=== PATIENT | female | born 1995 | race Caucasian/White ===

== ENCOUNTER 2024-01-30 22:14 | Emergency (ER) | payer OTHER, SELFPAY ==
[2024-01-30 22:18] VITALS: BP 135/74; PULSE 112; RESP 18; TEMP 36.6; O2SAT 96; BMI 39.9
--- NOTE | 2024-01-30 22:37 | ED_ITS ---
HPI - Abdominal Pain General Chief Complaint: Abdominal Pain Stated Complaint: Abdominal Pain, Nausea/Vomiting Time Seen by Provider: 01/30/24 22:27 Source: patient Mode of arrival: walk-in Limitations: no limitations History of Present Illness HPI narrative: past history of gastric bypass. Past liver laceration 2018 that healed spontaneously. Now presents complaining of recurrent RUQ pain since yesterday associated with nausea. No fever or dyspnea MD elicited complaint: Reports abdominal pain Related Data Allergies Allergy/AdvReac Type Severity Reaction Status Date / Time acetaminophen [From Vicodin] Allergy Intermediate Hives Verified 01/30/24 22:25 hydrocodone [From Vicodin] Allergy Intermediate Hives Verified 01/30/24 22:25 oxycodone Allergy Intermediate Hives Verified 01/30/24 22:25 Review of Systems ROS Status of ROS 10 or more systems reviewed and unremark able except as noted in history and below Exam Constitutional Vital Signs, click to edit/add: Last Vital Signs Temp 98 F 01/30/24 22:18 Pulse 63 01/31/24 01:29 Resp 14 01/31/24 01:29 BP 110/72 01/31/24 01:29 Pulse Ox 96 01/31/24 01:29 O2 Del Method Room Air 01/31/24 01:29 Common normals: no apparent distress, average body habitus, oriented x3, no limitations, healthy appearing, alert and well nourished [facility] Common normals: normocephalic and head/scalp atraumatic Eye Common normals: PERRL, EOMs intact bilaterally and conjunctivae normal Respiratory Common normals: normal respiratory effort, no retractions, no use of accessory muscles and clear to auscultation bilaterally Cardio Common normals: regular rate, regular rhythm, S1 normal heart sound and S2 normal heart sound GI Other: RUQ tenderness Extremity Common normals: normal to inspection and full ROM Neuro Common normals: oriented x3, CN's II-XII intact bilaterally, moves all extremities and no focal motor deficits Psych Appearance: grossly normal Course Vital Signs Vital signs: Vital Signs Temperature 98 F 01/30/24 22:18 Pulse Rate 112 H 01/30/24 22:18 Respiratory Rate 18 01/30/24 22:18 Blood Pressure 135/74 01/30/24 22:18 Pulse Oximetry 96 01/30/24 22:18 Oxygen Delivery Method Room Air 01/30/24 22:18 Temperature 98 F 01/30/24 22:18 Pulse Rate 63 01/31/24 01:29 Respiratory Rate 14 01/31/24 01:29 Blood Pressure 110/72 01/31/24 01:29 Pulse Oximetry 96 01/31/24 01:29 Oxygen Delivery Method Room Air 01/31/24 01:29 MDM - Abdominal Pain MDM Narrative Medical decision making narrative: patient presents with RUQ pain and nausea. LFTs normal. CT without acute findings. Patient is feeling better after zofran and hydration. Discharged home in improved condition and advised to schedule out patient GB US and follow up with her doctor Return to ER if symptoms recur Lab Data Labs: Lab Results 01/30/24 Range/Units 22:35 WBC 7.3 (4.0-11.0) 10^3/uL RBC 4.44 (4.20-5.40) 10^6/uL Hgb 13.2 (12.0-16.0) g/dL Hct 41.7 (36.0-48.0) % MCV 93.9 (81.0-99.0) fL MCH 29.7 (26.7-34.0) pg MCHC 31.7 (29.9-35.2) g/dL RDW 11.6 (11.0-15.0) % Plt Count 323 (150-450) 10^3/uL MPV 9.9 (9.5-13.5) fL Neut % (Auto) 42.2 L (43.0-75.0) % Lymph % (Auto) 46.9 (20.5-60.0) % [place] % (Auto) 8.3 (1.7-12.0) % Eos % (Auto) 2.1 (0.9-7.0) % Baso % (Auto) 0.4 (0.2-2.0) % Neut # (Auto) 3.1 (1.4-6.5) 10^3/uL Lymph # (Auto) 3.4 (1.2-3.8) 10^3/uL [place] # (Auto) 0.6 (0.3-0.8) 10^3/uL Eos # (Auto) 0.2 (0.0-0.7) 10^3/uL Baso # (Auto) 0.0 (0.0-0.1) 10^3/uL Abs Immat Gran (auto) 0.01 (0.00-0.03) 10^3/uL Imm/Tot Granulo (auto) 0.1 (0.0-0.5) % Sodium 139 (136-145) mmol/L Potassium 3.3 L (3.5-5.1) mmol/L Chloride 107 (98-107) mmol/L Carbon Dioxide 19.8 L (21.0-32.0) mmol/L Anion Gap 15.5 BUN 16.0 (7.0-18.0) mg/dL Creatinine 1.13 H (0.55-1.02) mg/dL Est GFR ( Amer) >60 (>=60) Est GFR (Non-Af Amer) 57 L (>=60) BUN/Creatinine Ratio 14.2 Glucose 56 L (74-106) mg/dL Lactate 1.9 (0.4-2.0) mmol/L Calcium 8.3 L (8.5-10.1) mg/dL Total Bilirubin 0.6 (0.2-1.0) mg/dL AST 21 (15-37) U/L ALT 36 (14-59) U/L Alkaline Phosphatase 111 (46-116) U/L Troponin I High Sens <4.0 L (4.0-51.3) pg/mL Total Protein 7.4 (6.4-8.2) g/dL Albumin 3.5 (3.4-5.0) g/dL Globulin 3.9 g/dL Albumin/Globulin Ratio 0.9 Lipase 31.0 (16.0-77.0) U/L Urine Color Lt. yellow (YELLOW) Urine Clarity Clear (CLEAR) Urine pH 6.0 (5.0-9.0) Ur Specific [place] 1.015 (1.005-1.025) Urine Protein Negative (NEG/TRACE) mg/dL Urine Glucose (UA) Negative (NEGATIVE) mg/dL Urine Ketones Negative (NEGATIVE) mg/dL Urine Occult Blood Trace-i (NEGATIVE) Urine Nitrite Negative (NEGATIVE) Urine Bilirubin Negative (NEGATIVE) Urine Urobilinogen 0.2 (0.2-1.0) EU/dL Ur Leukocyte Esterase Negative (NEGATIVE) Urine RBC 0-2 (0-2) #/HPF Urine WBC 0-2 A (NONE SEEN) #/HPF Ur Squamous Epith Cells Few A (NONE/RARE) #/LPF Urine Crystals Seen A (None Seen) #/HPF Amorphous Sediment Rare Urine Bacteria None seen (NONE SEEN) #/HPF Urine Casts None seen (NONE SEEN) #/LPF Urine Mucus None seen (NONE SEEN) Ur Culture Indicated? No Urine HCG, Qual Negative (NEGATIVE) Discharge Plan Discharge Stand Alone Forms: Portal Instructions Chief Complaint: Abdominal Pain Clinical Impression: Abdominal pain Patient Disposition: Home, Self-Care Print Language: Citizen Of [place] Instructions: Abdominal Pain (ED) Additional Instructions: Appointment with ultrasound at 1pm to R/O Cholelithiasis at [facility] Nothing to eat or drink 8 hours prior to testing. Referrals: Physician,Non-Staff, [Primary Care Provider] - 1 week Discharge Date/Time: 01/31/24 01:30
--- NOTE | 2024-01-30 22:40 | CT_ITS ---
[address] [address] Patient Name: QUENTIN LYNN MRN: [id number] date: 1995 Sex: F Assigned Patient Location: ER Current Patient Location: ER Accession/Order Number: [id number] Exam Date: 01/30/2024 23:30 Report Date: 01/31/2024 00:03 At the request of: MARVIN SILVESTRE Procedure: CT abdomen pelvis w con CT ABDOMEN AND PELVIS WITH CONTRAST: INDICATION: biliary colic. COMPARISON: None. TECHNIQUE:Multiple thin section transaxial slices were acquired through the abdomen and pelvis with intravenous contrast. Coronal and sagittal reconstructed images were reviewed. Oral contrastWas not administered. FINDINGS: LOWER CHEST: There is irregular pleural-based nodular density in the right lower lobe. LIVER: The liver is unremarkable. GALLBLADDER AND BILIARY SYSTEM: No obvious ductal dilation. No calcified stones. SPLEEN: The spleen is unremarkable. PANCREAS: The pancreas is unremarkable. ADRENAL GLANDS: The adrenal glands are unremarkable. KIDNEYS AND URETERS: There is no hydronephrosis of the kidneys.No obstructing urologic calcifications are present. Nonobstructive bilateral intrarenal calculi are present. There is a tiny cyst in the left kidney. VASCULATURE: Vascularity is unremarkable. PERITONEUM/RETROPERITONEUM: Peritoneum/retroperitoneum is unremarkable. LYMPH NODES: No suspicious lymphadenopathy. GASTROINTESTINAL TRACT: The bowel is normal in caliber.No acute inflammatory process is associated with the bowel. Postsurgical changes are present from gastric bypass procedure.The appendix is visualized and is not inflamed. BLADDER: The urinary bladder is unremarkable. REPRODUCTIVE SYSTEM: Reproductive system is unremarkable. BODY WALL: There is a tiny fat-containing umbilical hernia. 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 CT/CT abdomen pelvis w con IMPRESSION: No definitive acute inflammatory process or obstructive uropathy is identified in the abdomen or pelvis. Electronically authenticated by: ROSINA MOORE Date: 01/31/2024 00:03
[2024-01-30 22:47] LABS: Basophils Percent Auto 0.4 % (0.2-2.0); Eosinophils Absolute Auto 0.2 10^3/uL (0.0-0.7); Eosinophils Percent Auto 2.1 % (0.9-7.0); Hematocrit 41.7 % (36.0-48.0); Hemoglobin 13.2 g/dL (12.0-16.0); Immature Granulocytes Abs Auto 0.01 10^3/uL (0.00-0.03); Immature Granulocytes Pct Auto 0.1 % (0.0-0.5); Lymphocytes Absolute Auto 3.4 10^3/uL (1.2-3.8); Lymphocytes Percent Auto 46.9 % (20.5-60.0); Mean Corpuscular HGB Conc 31.7 g/dL (29.9-35.2); Mean Corpuscular Hemoglobin 29.7 pg (26.7-34.0); Mean Corpuscular Volume 93.9 fL (81.0-99.0); Mean Platelet Volume 9.9 fL (9.5-13.5); Monocytes Absolute Auto 0.6 10^3/uL (0.3-0.8); Monocytes Percent Auto 8.3 % (1.7-12.0); Neutrophils Absolute Auto 3.1 10^3/uL (1.4-6.5); Neutrophils Percent Auto 42.2 % (43.0-75.0); Platelet Count 323 10^3/uL (150-450); Red Blood Count 4.44 10^6/uL (4.20-5.40); Red Cell Distribution Width 11.6 % (11.0-15.0); White Blood Count 7.3 10^3/uL (4.0-11.0)
[2024-01-30 22:52] LABS: Bilirubin Urine NEGATIVE (NEGATIVE); Blood Urine TRACE-I (NEGATIVE); Clarity Urine CLEAR (CLEAR); Color Urine LT. YELLOW (YELLOW); Glucose Urine UA NEGATIVE (NEGATIVE); Ketones Urine NEGATIVE (NEGATIVE); Leukocyte Esterase Urine NEGATIVE (NEGATIVE); Nitrite Urine NEGATIVE (NEGATIVE); Protein Urine NEGATIVE (NEG/TRACE); Specific Gravity Urine 1.015 (1.005-1.025); Urobilinogen Urine 0.2 EU/dL (0.2-1.0)
[2024-01-30 22:53] LABS: HCG Qualitative Urine* NEGATIVE (NEGATIVE)
[2024-01-30 22:55] LABS: Urine Microscopic Indicated YES
[2024-01-30 22:59] LABS: Amorphous Sediment Urine RARE; Bacteria Urine NONE SEEN #/HPF (NONE SEEN); Cast Seen? NONE SEEN #/LPF (NONE SEEN); Crystals Seen? Seen #/HPF (None Seen); Mucus Urine NONE SEEN (NONE SEEN); RBC Urine 0-2 #/HPF (0-2); Squamous Epithelial Cell Urine FEW #/LPF (NONE/RARE); Urine Culture Indicated NO; WBC Urine 0-2 #/HPF (NONE SEEN)
[2024-01-30] MEDS: ONDANSETRON PF 4 MG/2 ML VIAL IV (23:05)
[2024-01-30] MEDS: 0.9 % SODIUM CHLORIDE 1,000 ML 999 ML IV (23:05)
[2024-01-30 23:08] LABS: Lactate/Lactic Acid 1.9 mmol/L (0.4-2.0)
[2024-01-30 23:09] LABS: Alanine Aminotransferase 36 U/L (14-59); Albumin Globulin Ratio 0.9; Albumin Level 3.5 g/dL (3.4-5.0); Alkaline Phosphatase 111 U/L (46-116); Anion Gap 15.5; Aspartate Amino Transferase 21 U/L (15-37); BUN Creatinine Ratio 14.2; Bilirubin Total 0.6 mg/dL (0.2-1.0); Calcium 8.3 mg/dL (8.5-10.1); Carbon Dioxide 19.8 mmol/L (21.0-32.0); Chloride 107 mmol/L (98-107); Estimated GFR (African America >60 (>=60); Estimated GFR (Non-African Ame 57 (>=60); Globulin 3.9 g/dL; Glucose 56 mg/dL (74-106); Potassium 3.3 mmol/L (3.5-5.1); Sodium 139 mmol/L (136-145); Total Protein 7.4 g/dL (6.4-8.2); Troponin I High Sensitivity <4.0 pg/mL (4.0-51.3)
[2024-01-31 01:29] VITALS: BP 110/72; PULSE 63; RESP 14; O2SAT 96
== END 2024-01-31 01:30 | disposition home or self-care (01) ==
PROVIDERS: Emergency Provider Internal Medicine
DX: R10.9 Unspecified abdominal pain (principal); Z98.84 Bariatric surgery status
CPT/HCPCS: 36415; 74177; 80053; 81001; 83605; 83690; 84484; 84703; 85025; 96374; 99284; Q9967

== ENCOUNTER 2024-01-31 12:54 | Outpatient (OUT) | payer OTHER, SELFPAY ==
--- NOTE | 2024-01-31 12:55 | US_ITS ---
The [address] [address] Patient Name: QUENTIN LYNN MRN: [id number] date: 1995 Sex: F Assigned Patient Location: US Current Patient Location: US Accession/Order Number: [id number] Exam Date: 01/31/2024 13:00 Report Date: 01/31/2024 13:48 At the request of: MARVIN SILVESTRE Procedure: US right upper quadrant EXAM: US right upper quadrant HISTORY: Cholelithiasis COMPARISON: None. TECHNIQUE: Grayscale and color ultrasound FINDINGS: The liver is normal in size, contour and echotexture. No focal mass. Hepatopedal flow in the main portal vein with a velocity of 24 cm/s. The gallbladder is normal in size. The wall measures 1.5 mm. Negative sonographic Carr sign. Common bile duct measures 1.4 mm. The visualized pancreas is normal The right kidney measures 11.7 x 4.4 x 4.0 cm. Multiple nonobstructing nephroliths US/US right upper quadrant IMPRESSION: Normal gallbladder Electronically authenticated by: JULIAN MARX Date: 01/31/2024 13:48
== END 2024-01-31 12:55 | disposition home or self-care (01) ==
LOC: US 12:54
PROVIDERS: Visit Provider Internal Medicine
DX: K80.20 Calculus of gallbladder without cholecystitis without obstruction (principal)
CPT/HCPCS: 76705